=== PATIENT | male | born 1960 | race African-American/Black ===

== ENCOUNTER 2017-01-27 21:53 | Emergency (ER) | payer OTHER ==
[~2017-01-27] VITALS: Ht 182.9 cm; Wt 93.0 kg
[2017-01-27] MEDS ORDERED: CARV3.122 PO (22:08)
[2017-01-27] MEDS ORDERED: LOSA25TA13 PO (22:08)
[2017-01-27] MEDS ORDERED: SPIR25TA4 PO (22:08)
[2017-01-27] MEDS ORDERED: AMIO200T2 PO (22:08)
[2017-01-27] MEDS ORDERED: RIVA10TA PO (22:08)
[2017-01-27] MEDS ORDERED: IV SET PRIMARY 1 EA INFUS.SET MC ONE ×2 (22:26→23:35)
[2017-01-27] MEDS ORDERED: IV NS 0.9% 1,000 ML ONE ×2 (22:26→23:35)
[2017-01-27] MEDS: IV NS 0.9% 1,000 ML BAG IV ONE ×2 (22:40→23:45)
[2017-01-27 22:45] LABS: BASOPHILS % (AUTO) 0.4 % (0.0-2.0); EOSINOPHILS % (AUTO) 0.5 % (0.0-6.0); HEMATOCRIT 36 % (39-51); LYMPHOCYTES # (AUTO) 1.2 /CMM (0.8-4.8); MEAN CORPUSCULAR HEMOGLOBIN 31 PG (26.0-33.0); MEAN CORPUSCULAR HGB CONC 34 g/dl (31.0-36.0); MEAN CORPUSCULAR VOLUME 92 fL (80-96); MONOCYTES # (AUTO) 0.6 /CMM (0.1-1.30); MONOCYTES % (AUTO) 13.2 % (2.0-12.0); NEUTROPHILS % (AUTO) 61.9 % (43.0-81.0); PLATELET COUNT (AUTO) 152 /CMM (150-450); RDW COEFFICIENT OF VARIATION 15.1 (11.5-15.0); RED BLOOD CELL COUNT(AUTO) 3.91 MIL/uL (4.5-6.0); WHITE BLOOD COUNT (AUTO) 4.9 K/uL (4.3-11.0)
[2017-01-27 22:55] LABS: CALCIUM, SERUM 8.8 mg/dL (8.5-10.1); CARBON DIOXIDE 27 mmol/L (21-32); CHLORIDE 94 mmol/L (98-107); CREATININE 1.1 mg/dL (0.6-1.3); GFR 70 mL/min (>60); GLUCOSE 100 mg/dL (74-106); POTASSIUM 4.5 mmol/L (3.5-5.1); SODIUM SERUM 132 mmol/L (136-145); UREA NITROGEN, BLOOD 11 mg/dL (7-18)
[2017-01-27 22:56] LABS: SERUM AMMONIA < 10 umol/L (11-32)
[2017-01-27 23:00] LABS: INR 1.4 (0.87-1.13); PROTHROMBIN TIME 15.3 SECS (9.5-12.7)
[2017-01-27 23:11] LABS: ALANINE AMINOTRANSFERASE 378 U/L (12-78); ALBUMIN 4.5 g/dL (3.4-5.0); ALCOHOL, BLOOD 128 mg/dL (0-0); ALKALINE PHOSPHATASE 75 U/L (46-116); ASPARTATE AMINOTRANSFERASE 354 U/L (15-37); BILIRUBIN,DIRECT 0.1 mg/dL (0.0-0.2); BILIRUBIN,TOTAL 0.4 mg/dL (0.2-1.0); TOTAL PROTEIN, SERUM 8.4 g/dL (6.4-8.2)
[2017-01-27 23:13] LABS: ACETAMINOPHEN 0 ug/ml (10-30); SALICYLATE 0.9 mg/dL (2.8-20.0)
[2017-01-27 23:14] LABS: TROPONIN I < 0.017 ng/mL (0.00-0.056)
[2017-01-27] MEDS ORDERED: LORAZEPAM INJ 2 MG/ML VIAL ONE (23:36)
[2017-01-27] MEDS: LORAZEPAM INJ 2 MG/ML VIAL IV ONE (23:45)
[2017-01-28 00:45] VITALS: BP 117/88
[2017-01-28] MEDS: CHLORDIAZEPOXIDE HCL 25 MG CAPSULE PO ONE (00:45)
== END 2017-01-28 00:56 | disposition home or self-care (01) ==
LOC: ER 21:56
DX: K70.10 Alcoholic hepatitis without ascites (principal); E86.0 Dehydration; F10.10 Alcohol abuse, uncomplicated; I10 Essential (primary) hypertension; I48.91 Unspecified atrial fibrillation; F17.210 Nicotine dependence, cigarettes, uncomplicated; E11.9 Type 2 diabetes mellitus without complications
CPT/HCPCS: 36415; 70450; 71010; 80048; 80076; 80329; 82140; 84484; 85025; 85730; 93005; 96361; 96374; 99285; A4606; G0480 ×2; J2060; J7030; Z7610; G6039-TC